=== PATIENT | female | born 1990 | race Caucasian/White ===

== ENCOUNTER 2017-09-09 09:21 | Emergency (ER) | payer MEDICAID ==
[2017-09-09 09:21] VITALS: BMI 25.2
[2017-09-09] MEDS ORDERED: Sodium Chloride 0.9% 1,000 ML IV ONE (10:04)
[2017-09-09 10:19] LABS: BASO # 0.1 K/uL (0.0-0.2); BASO % 0.6 % (0.0-2.0); EOS # 0.1 K/uL (0.0-0.7); EOS % 1.1 % (0.0-4.0); HEMOGLOBIN 13.6 g/dL (11.0-16.0); LYMPH # 1.6 K/uL (1.0-4.3); LYMPH % 13.4 % (20.0-40.0); MEAN CELL VOLUME 84.8 fL (81.0-99.0); MEAN CORPUSCULAR HEMOGLOBIN 29.2 pg (27.0-31.0); MEAN CORPUSCULAR HGB CONC 34.5 g/dL (33.0-37.0); MEAN PLATELET VOLUME 7.4 fL (7.2-11.7); MONO # 0.8 K/uL (0.0-0.8); MONO % 6.9 % (0.0-10.0); NEUT # 9.2 K/uL (1.8-7.0); RBC 4.66 Mil/uL (3.80-5.20); RED CELL DISTRIBUTION WIDTH 13.2 % (11.5-14.5); WHITE BLOOD COUNT 11.8 K/uL (4.8-10.8)
[2017-09-09] MEDS ORDERED: Sodium Chloride 0.9% 1,000 ML ONE (10:20)
[2017-09-09 10:31] LABS: HCG,QUALITATIVE URINE NEGATIVE (NEGATIVE); SQUAMOUS EPITHIAL < 1 /hpf (0-5); URINE BILIRUBIN NEGATIVE (NEGATIVE); URINE BLOOD NEGATIVE (NEGATIVE); URINE CLARITY Clear (Clear); URINE COLOR Yellow (YELLOW); URINE GLUCOSE (UA) NORMAL (Normal); URINE LEUKOCYTE ESTERASE NEG Leu/uL (Negative); URINE PROTEIN NEGATIVE (NEGATIVE); URINE UROBILINOGEN NORMAL mg/dL (0.2-1.0)
[2017-09-09 10:37] LABS: ALB/GLOB RATIO 1.6 (1.0-2.1); ALBUMIN 4.4 g/dL (3.5-5.0); ALT/SGPT 22 U/L (9-52); AST/SGOT 31 U/L (14-36); BLOOD UREA NITROGEN 6 mg/dL (7-17); CALCIUM 9.2 mg/dl (8.6-10.4); GFR AFRICAN-AMERICAN > 60; GFR NON-AFRICAN AMERICAN > 60; LIPASE 32 U/L (23-300)
--- NOTE | 2017-09-09 11:38 | C.PDOC ---
History Of Present Illness 27 year old female presents to the ED complaining of right sided abdominal pain that began last night. Patient describes pain as constant, sharp, and non- radiating. She reports she had similar pain in the past and was told she had an ovarian cyst at the clinic. She admits to nausea, but denies any vomiting, diarrhea, dysruria, fever, vaginal bleeding or discharge. Time Seen by Provider: 09/09/17 09:25 Chief Complaint (Nursing): Abdominal Pain History Per: Patient History/Exam Limitations: no limitations Onset/Duration Of Symptoms: Hrs Current Symptoms Are (Timing): Still Present Severity: Mild Location Of Pain/Discomfort: RLQ, Periumbilical, Suprapubic Quality Of Discomfort: Sharp Associated Symptoms: Nausea. denies: Fever, Vomiting, Diarrhea, Urinary Symptoms Abnormal Vaginal Bleeding: No Past Medical History Reviewed: Historical Data, Nursing Documentation, Vital Signs Vital Signs: Last Vital Signs Temp 98 F 09/09/17 15:22 Pulse 76 09/09/17 15:22 Resp 18 09/09/17 15:22 BP 123/72 09/09/17 15:22 Pulse Ox 97 09/09/17 15:31 - Medical History PMH: No Chronic Diseases Surgical History: Denies: No Surg Hx Family History: States: No Known Family Hx - Social History Hx Alcohol Use: No Hx Substance Use: No - Immunization History Hx Tetanus Toxoid Vaccination: No Hx Influenza Vaccination: No Hx Pneumococcal Vaccination: No Review Of Systems Constitutional: Negative for: Fever, Chills Gastrointestinal: Positive for: Nausea, Abdominal Pain. Negative for: Vomiting , Diarrhea Genitourinary: Negative for: Dysuria, Hematuria, Vaginal Discharge, Vaginal Bleeding Physical Exam - Physical Exam Appears: Well, Non-toxic, Other (In mild pain ) Skin: Normal Color, Warm, Dry, No Rash Head: Normacephalic Eye(s): bilateral: Normal Inspection Oral Mucosa: Moist Cardiovascular: Rhythm Regular Respiratory: Normal Breath Sounds, No Rales, No Rhonchi, No Wheezing Gastrointestinal/Abdominal: Bowel Sounds, Soft, Tenderness (Tenderness to palpation right lower quadrant, right periumbilical and suprapubic areas), No Distention, No Guarding, No Rebound Back: No CVA Tenderness Pelvic: Normal External Exam, Normal Speculum Exam, Normal Bimanual Exam, No Vaginal Bleeding, No Vaginal Discharge, No Cervical Motion Tenderness, No Adnexal Tenderness, No Tender Uterus Neurological/Psych: Oriented x3, Normal Speech Gait: Steady ED Course And Treatment - Laboratory Results Result Diagrams: 09/09/17 10:15 09/09/17 10:15 O2 Sat by Pulse Oximetry: 97 (RA) Pulse Ox Interpretation: Normal - CT Scan/US US Abd Other Rad Studies (CT/US): Read By Radiologist, Radiology Report Reviewed CT/US Interpretation: Accession No. : [id number]. Patient Name / ID : ANTIONETTE GROVES / [id number]. Exam Date : 09/09/2017 13:20:33 ( Approved ). Study Comment : Sex / Age : F / 27Y. Creator : Chaitanya Wade MD. Dictator : Building Carpenter Helper : Medical Program Specialist : Chaitanya Wade MD. Approver2 : Report Date : 09/09/2017 14:22:42. My Comment : . HISTORY: RLQ PAIN R/O APPY. COMPARISON: No prior study available for comparison. TECHNIQUE: Targeted sonographic evaluation of the right lower quadrant. FINDINGS: The current study reveals small amount of free fluid in the right lower quadrant of the abdomen. The appendix is not seen on this study and therefore the possibility of appendicitis cannot be excluded. Please refer to concurrent pelvic ultrasound for additional details. IMPRESSION: The appendix not seen with any certainty on this study. Small amount of free fluid present in the right lower quadrant of the abdomen. Please refer to concurrent pelvic ultrasound for additional details. US Abd/Pel Other Rad Studies (CT/US): Read By Radiologist, Radiology Report Reviewed CT/US Interpretation: Accession No. : [id number]. Patient Name / ID : ANTIONETTE GROVES / [id number]. Exam Date : 09/09/2017 12:50:12 ( Approved ). Study Comment : Sex / Age : F / 27Y. Creator : Chaitanya Wade MD. Dictator : Building Carpenter Helper : Medical Program Specialist : Chaitanya Wade MD. Approver2 : Report Date : 09/09/2017 14:31:56. My Comment : . HISTORY: PELVIC PAIN, EVAL OVARIES. COMPARISON: None available. TECHNIQUE: Transabdominal/transvaginal the sonographic evaluation of the pelvis. FINDINGS: UTERUS: Measures 7.1 x 4.4 x 4.2 cm. Normal in size and appearance. Retroverted. No fibroid or other mass lesion seen. ENDOMETRIUM: Measures 1.5 mm in diameter. Unremarkable. CERVIX: Ian suspect a small cervical nabothian cyst. RIGHT OVARY: Measures 4.3 x 2.8 x 4.1 cm. . There appears to be a serpiginous tubular appearing fluid- filled fluid structure right adnexal structure that may represent a dilated fallopian tube. Rule out hydrosalpinx and/or TOA. Normal flow. LEFT OVARY: Measures 3.3 x 1.9 x 2.1 cm. There appears to be a serpiginous tubular appearing fluid-filled fluid structure left adnexal structure that may represent a dilated fallopian tube. Rule out hydrosalpinx and/or TOA. Normal flow. FREE FLUID: Free fluid is present. OTHER FINDINGS: None. IMPRESSION: Bilateral serpiginous tubular appearing fluid-filled adnexal structures possibly representing bilateral hydrosalpinx and/or TOA. Clinical correlation recommended. Free fluid is noted within the pelvis. US abdomen Other Rad Studies (CT/US): Read By Radiologist, Radiology Report Reviewed CT/US Interpretation: Accession No. : [id number]. Patient Name / ID : ANTIONETTE GROVES / [id number]. Exam Date : 09/09/2017 12:34:06 ( Approved ). Study Comment : Sex / Age : F / 27Y. Creator : Chaitanya Wade MD. Dictator : Building Carpenter Helper : Medical Program Specialist : Chaitanya Wade MD. Approver2 : Report Date : 09/09/2017 14:26:36. My Comment : . HISTORY: RUQ/RLQ PAIN EVAL GALLBLADDER, LIVER, APPENDIX. COMPARISON: None. TECHNIQUE: Sonographic evaluation of the right upper quadrant of the abdomen. FINDINGS: LIVER: Measures 14.7 cm in length. Slight increased echogenicity of the liver parenchyma likely due to fatty infiltration however the possibility of other infiltrative hepatocellular disease process not exclude. No mass. No intrahepatic bile duct dilatation. GALLBLADDER: Unremarkable. No gallstones. COMMON BILE DUCT: Measures 4.0 mm. No stones. No dilatation. PANCREAS: Unremarkable as visualized. No mass. No ductal dilatation. RIGHT KIDNEY: Measures 11.6 x 3.9 x 4.5 cm in length. Normal echogenicity. No calculus, mass, or hydronephrosis. AORTA: No aneurysmal dilatation. IVC: Unremarkable. OTHER FINDINGS: None . IMPRESSION: No evidence of cholelithiasis. The liver exhibits slight increased echotexture likely due to fatty infiltration however other infiltrative hepatic cellular disease process not excluded. Progress Note: Blood work, UA, Upreg and transvaginal/abdominal US ordered and reviewed. Patient given IV NS bolus, IV toradol. US shows hydrosalpinx vs tuboovarian abscess. Patient confirms prior history of "fluid in tubes", is nontoxic, afebrile and without leukocytosis. Patient given IM rocpehin, PO Azithromycin in ED. Rx for Flagyl given, as well as copies of all studies. Patient instructed to follow up with bag machine tender within 1 week without fail. She understands she should return to ED if symptoms worsen. Reevaluation Time: 15:30 Reassessment Condition: Improved (Patient reassessed, is resting comfortably and states she feels better. On exam, abdomen is soft and nontender.) - Physician Consult Information Time Consulting Physician Contacted: 15:10 Physician Contacted: Outcome Of Conversation: Discussed patient with operations intern bag machine tender, recommends treatment for STDs (G/C and trich), and follow up with bag machine tender as outpatient. Disposition Counseled Patient/Family Regarding: Studies Performed, Diagnosis, Need For Followup, Rx Given - Disposition Referrals: [facility] [Outside] [facility] [Outside] [facility] [Outside] Disposition: HOME/ ROUTINE Disposition Time: 15:30 Condition: STABLE Additional Instructions: FOLLOW UP WITH YOUR DIRECTOR INDEX WITHIN 1 WEEK USE MEDICATIONS DIRECTED RETURN TO ER IF YOUR SYMPTOMS WORSEN Prescriptions: metroNIDAZOLE [Flagyl] 500 mg PO BID #14 tab Naproxen 375 mg PO BID PRN #20 tablet PRN Reason: pain Forms: General Discharge Instructions, [facility] (Greenlandic), Work Excuse Print Language: YEMENI - Clinical Impression Clinical Impression: Hydrosalpinx - Scribe Statement The provider has reviewed the documentation as recorded by the Scribe Veena Perez All medical record entries made by the Scribe were at my direction and personally dictated by me. I have reviewed the chart and agree that the record accurately reflects my personal performance of the history, physical exam, medical decision making, and the department course for this patient. I have also personally directed, reviewed, and agree with the discharge instructions and disposition.
--- NOTE | 2017-09-09 14:24 | US ---
HISTORY: RLQ PAIN R/O APPY COMPARISON: No prior study available for comparison TECHNIQUE: Targeted sonographic evaluation of the right lower quadrant FINDINGS: The current study reveals small amount of free fluid in the right lower quadrant of the abdomen. The appendix is not seen on this study and therefore the possibility of appendicitis cannot be excluded. Please refer to concurrent pelvic ultrasound for additional details. IMPRESSION: The appendix not seen with any certainty on this study. Small amount of free fluid present in the right lower quadrant of the abdomen. Please refer to concurrent pelvic ultrasound for additional details.
--- NOTE | 2017-09-09 14:28 | US ---
HISTORY: RUQ/RLQ PAIN EVAL GALLBLADDER, LIVER, APPENDIX COMPARISON: None. TECHNIQUE: Sonographic evaluation of the right upper quadrant of the abdomen. FINDINGS: LIVER: Measures 14.7 cm in length. Slight increased echogenicity of the liver parenchyma likely due to fatty infiltration however the possibility of other infiltrative hepatocellular disease process not exclude. No mass. No intrahepatic bile duct dilatation. GALLBLADDER: Unremarkable. No gallstones. COMMON BILE DUCT: Measures 4.0 mm. No stones. No dilatation. PANCREAS: Unremarkable as visualized. No mass. No ductal dilatation. RIGHT KIDNEY: Measures 11.6 x 3.9 x 4.5 cm in length. Normal echogenicity. No calculus, mass, or hydronephrosis. AORTA: No aneurysmal dilatation. IVC: Unremarkable. OTHER FINDINGS: None . IMPRESSION: No evidence of cholelithiasis. The liver exhibits slight increased echotexture likely due to fatty infiltration however other infiltrative hepatic cellular disease process not excluded.
--- NOTE | 2017-09-09 14:33 | US ---
HISTORY: PELVIC PAIN, EVAL OVARIES COMPARISON: None available. TECHNIQUE: Transabdominal/transvaginal the sonographic evaluation of the pelvis. FINDINGS: UTERUS: Measures 7.1 x 4.4 x 4.2 cm. Normal in size and appearance. Retroverted. No fibroid or other mass lesion seen. ENDOMETRIUM: Measures 1.5 mm in diameter. Unremarkable. CERVIX: Ian suspect a small cervical nabothian cyst. RIGHT OVARY: Measures 4.3 x 2.8 x 4.1 cm. . There appears to be a serpiginous tubular appearing fluid-filled fluid structure right adnexal structure that may represent a dilated fallopian tube. Rule out hydrosalpinx and/or TOA. Normal flow. LEFT OVARY: Measures 3.3 x 1.9 x 2.1 cm. There appears to be a serpiginous tubular appearing fluid-filled fluid structure left adnexal structure that may represent a dilated fallopian tube. Rule out hydrosalpinx and/or TOA. Normal flow. FREE FLUID: Free fluid is present OTHER FINDINGS: None. IMPRESSION: Bilateral serpiginous tubular appearing fluid-filled adnexal structures possibly representing bilateral hydrosalpinx and/or TOA. Clinical correlation recommended. Free fluid is noted within the pelvis.
[2017-09-09] MEDS ORDERED: cefTRIAXone IV 1 gm in Dextros 50 ML IV STA (15:12)
[2017-09-09 15:23] VITALS: BP 123/72; PULSE 76; RESP 18; TEMP 98
[2017-09-09] MEDS ORDERED: cefTRIAXone IV 1 gm in Dextros 50 ML IVPB ONE (15:27)
[2017-09-09 15:33] VITALS: O2SAT 97
== END 2017-09-09 15:51 | disposition home or self-care (01) ==
LOC: C.ER 09:21
DX: N70.11 Chronic salpingitis (principal)
CPT/HCPCS: 76705; 76830; 76856; 80053; 81001; 83690; 84703; 85025; 87491; 87591; 96374; 99285; J0696; J2270; J7030